=== PATIENT | male | born 1970 | race Caucasian/White ===

== ENCOUNTER → 2024-02-18 15:50 | Outpatient (REF) | payer OTHER, SELFPAY | LOC: DHSLP 15:50 | PROVIDERS: ATTENDING PHYSICIAN Internal Medicine Critical Care Medicine; FAMILY PHYSICIAN Family Medicine | DX: G47.33 Obstructive sleep apnea (adult) (pediatric) (principal) | CPT/HCPCS: 95800 ==

== ENCOUNTER 2024-06-12 23:59 | Emergency (ER) | payer OTHER, SELFPAY ==
[2024-06-13 00:13] VITALS: BP 135/89
--- NOTE | 2024-06-13 00:45 | ED.GENMED ---
History of Present Illness
General
Chief Complaint: Abdominal Pain
Source: patient
Time Seen by Provider: 06/13/24 00:29
History of Present Illness
History of Present Illness:
53-year-old male presents to the emergency room complaining of abdominal pain, diarrhea, nausea. Patient said symptoms for the past 24 hours or so. He does have a history of having C. difficile once few years ago. He was in fact on a course of
antibiotics for sinusitis about a month ago. No one else in the house is sick. No recent travel.
Past History
Past History
ED Past Medical History: None
ED Past Surgical History: None
Social History
Tobacco: Non-smoker
Alcohol: None
Drug: None
Personal:
Living: with family
Employment: Employed
Phy Exam
Physical Exam
Physical Exam:
General: Awake, Alert, Oriented X3. No acute distress.
Vitals: unremarkable
Head: Atraumatic
Eyes: Pupils equal, EOMI
Throat: Airway intact, no exudates
Neck: Trachea midline
Lungs: Clear and equal b/l
Heart: Regular rate, no murmurs
Abd: Soft, mild tenderness lower abdomen, no pulsatile mass
Neuro: Nonfocal
Skin: Warm, dry, no rash
Extremities: pulses equal b/l, no edema
Course
Orders/Labs/Results
Orders:
Orders
06/13/24 00:43
0.9% Sodium Chloride 1000 ml [Nss] 1,000 ml IV BOLUS
Ondansetron Injectable [Zofran] 4 mg IV NOW STA
06/13/24 00:44
CT Abd/Pel (IV only)-DH only Urgent
Comment:
Reason For Exam: lower abd pain
06/13/24 00:49
Basic Metabolic Panel Urgent
Complete Blood Count/With Diff Urgent
Abnormal Lab Results
06/13/24
00:49
Abs Immat Gran (auto) 0.1 H 10^3/uL
(0-0.05)
Absolute Lymphs (auto) 0.6 L 10^3/uL
(1.2-3.4)
Immature Gran % 1.9 H %
(0-0.5)
Neutrophils % 79.9 H %
(42.2-75.2)
Lymphocytes % 10.8 L %
(20.5-51.1)
Glucose 103 H mg/dl
(70-99)
06/13/24 00:49
06/13/24 00:49
Vital Signs
Initial and Last Documented VS:
Initial Vital Signs
Temp Pulse Resp BP Pulse Ox
98.9 F 85 18 135/89 98
06/13/24 00:13 06/13/24 00:13 06/13/24 00:13 06/13/24 00:13 06/13/24 00:13
Last Documented Vital Signs
Temp Pulse Resp BP Pulse Ox
98.9 F 78 14 122/71 98
06/13/24 00:13 06/13/24 02:07 06/13/24 02:07 06/13/24 02:07 06/13/24 02:07
MDM/Problems Addressed
Differential Diagnosis Includes:
Diverticulitis, appendicitis, partial small bowel obstruction, ileus
MDM/Problems Addressed:
Patient presents with belly pain nausea and diarrhea. Workup here shows essentially normal labs. Imaging shows no acute abnormalities. Patient stable for discharge home.
*Radiology
Radiology exam reviewed: radiology read reviewed (Vision)
*Pulse Oximetry
Patient hypoxic: no
*Critical Care Note
Total Time (30-74mins, 75-104mins- exclusive of procedures): Not Applicable
ED Attending Note
-
Portions of this chart may have been created with voice recognition software.� Occasional wrong word or��sound alike� substitutions may have occurred due to the inherent limitations of voice recognition software.
Discharge Plan
Departure
Patient Disposition: Home (Routine Discharge)
Date of Disposition: 06/13/24
Time of Disposition: 02:01
Patient with high blood pressure during this ER visit?: No
Condition: Good
Discharge Problem:
Acute vomiting, Acute diarrhea
Instructions: Diarrhea in teens and adults, Nausea and Vomiting, Adult (DC)
Prescriptions:
New
ondansetron 4 mg tablet,disintegrating
4 mg PO Q8H PRN (Reason: nausea and vomiting) Qty: 14 0RF
No Action
Acidophilus
1 cap PO DAILY
multivitamin Tablet
1 tab PO DAILY
omeprazole 40 mg Capsule,Delayed Release(Dr/Ec)
40 mg PO DAILY
Fish Oil
2 cap PO DAILY
Referrals:
Gray Smith MD [Family Provider] -
Interventions
Interventions:
*Risk Screen - Suicide Last Done: 06/13/24 00:13
*General Assessment Last Done: 06/13/24 00:13
*Neglect/Abuse Screening Last Done: 06/13/24 00:13
ED- Fall Risk Assessment Last Done: 06/13/24 01:07
*ED COVID-19 Vaccine History Last Done: 06/13/24 00:13
*Nursing Disposition Last Done: 06/13/24 02:12
UG-[facility]vcermc[facility] Assessment Last Done: 06/13/24 01:07
Discharge Date and Time
Discharge Date/Time: 06/13/24 02:12
Print Language: YAKUT
[2024-06-13 00:51] VITALS: BMI 30.5
[2024-06-13] MEDS: NSS 1000 IV (00:58)
[2024-06-13] MEDS: ZOFRAN 4 MG IV (00:59)
[2024-06-13 01:02] VITALS: BP 128/81
--- NOTE | 2024-06-13 01:08 | EDRN ---
Pt developed mid lower abdominal pain yesterday morning. Pt was at work around 1330 and said he had to lie down for awhile. Pain has been constant. Pt took 2 antacids which did not help. Pt has been drinking water and says he has had no appetite
and has not eaten any food today. Pt estimates he had 10-15 episodes of diarrhea. No vomiting, dry heaved x 3. Pt denies fever/cough, cp, sob, urinary symptoms, weakness, dizziness, ill contacts. Pt has been chilled.
[2024-06-13 01:22] LABS: Blood Urea Nitrogen 20 mg/dl (9-20); Calcium 8.7 mg/dl (8.4-10.2); Carbon Dioxide 24 mmol/L (22-30); Chloride 103 mmol/L (98-107); Estimated Creatinine Clearance 94 ml/min; Glucose 103 mg/dl (70-99); Potassium 3.9 mmol/L (3.5-5.1); Sodium 135 mmol/L (135-145); eGFR > 60.00
[2024-06-13 01:49] LABS: % Basophils 0.3 % (0-2); % Eosinophils 1.2 % (0-6); % Immature Granulocytes 1.9 % (0-0.5); % Lymphocytes 10.8 % (20.5-51.1); % Monocytes 5.9 % (1.7-9.3); % Neutrophils 79.9 % (42.2-75.2); Absolute Eosinophils 0.1 10^3/uL (0-0.7); Absolute Immature Granulocytes 0.1 10^3/uL (0-0.05); Absolute Lymphocytes 0.6 10^3/uL (1.2-3.4); Absolute Monocytes 0.4 10^3/uL (0.1-0.6); Absolute Neutrophils 4.7 10^3/uL (1.4-6.5); Hemoglobin 14.4 g/dL (13.0-18.0); Mean Corp Hgb Conc. 34.3 g/dL (33.0-37.0); Mean Corpuscular Hgb 29.6 pg (27.0-31.0); Mean Corpuscular Volume 86.4 fL (80.0-94.0); Mean Platelet Volume 8.9 fL (7.4-10.4); Nucleated Red Blood Cells % 0 % (-); Platelet Count 206 10^3/uL (130-400); Red Blood Cell Count 4.86 10^6/uL (4.70-6.10); Red Cell Dist. Width 12.9 % (11.5-14.5); White Blood Cell Count 5.9 10^3/uL (4.8-10.8)
[2024-06-13 02:07] VITALS: BP 122/71
== END 2024-06-13 02:12 | disposition home or self-care (01) ==
LOC: EMR 23:59
PROVIDERS: EMERGENCY PHYSICIAN Emergency Medicine; FAMILY PHYSICIAN Family Medicine
DX: R11.2 Nausea with vomiting, unspecified (principal); R19.7 Diarrhea, unspecified; R10.9 Unspecified abdominal pain
CPT/HCPCS: 96374; 96361; 99284; 74177; 80048; 85025; Q9967